=== PATIENT | male | born 1960 | race Hispanic/Latino ===

== ENCOUNTER 2021-01-22 13:05 | Outpatient (CLI) | payer MEDICARE | END 2021-01-22 13:06 | disposition home or self-care (01) | LOC: ULT 13:05 | PROVIDERS: ATTEND Internal Medicine Nephrology | DX: N18.30 Chronic kidney disease, stage 3 unspecified (principal); N28.1 Cyst of kidney, acquired | CPT/HCPCS: 76770 ==